=== PATIENT | female | born 1960 | race Caucasian/White ===

== ENCOUNTER → 2016-09-22 | Outpatient (CLI) | payer OTHER ==
[~2016-09-22] MED LIST: CHOL1CAP14 PO; CYMB30CA PO; FLUT50SP EACH NARE; HUMI20KI SQ; HYDR-3583 PO; MECL-62 PO; METH2.5T PO; MOBI7.5T PO; MULTTAB67 PO; ONDA4TAB7 SL; OXYB5TAB10 PO; PRED5TAB PO; VENTAER INH
[2016-09-22 11:43] LABS: HEMATOCRIT 39.3 % (35.0-46.0); MEAN CELL VOLUME 88.8 FL (80.0-100.0); MEAN CORPUSCULAR HEMOGLOBIN 29.5 PG (27.0-34.0); MEAN CORPUSCULAR HGB CONC 33.3 % (32.0-36.0); PLATELET COUNT 238 TH/MM3 (150-450); RED BLOOD COUNT 4.43 MIL/MM3 (4.00-5.30); RED CELL DISTRIBUTION WIDTH 13.3 % (11.6-17.2); REVIEW FLAG FINAL; WHITE BLOOD COUNT 4.7 TH/MM3 (4.0-11.0)
[2016-09-22 12:56] LABS: WESTERGREN SEDIMENTATION RATE 6 mm/hr (0-30)
[2016-09-22 13:13] LABS: ALKALINE PHOSPHATASE 79 U/L (45-117); ALT (GPT) 35 U/L (10-53); ANION GAP 8 MEQ/L (5-15); AST (GOT) 26 U/L (15-37); BLOOD UREA NITROGEN 12 MG/DL (7-18); CHLORIDE 106 MEQ/L (98-107); GLOMERULAR FILTRATION RATE 74 ML/MIN (>89); GLUCOSE,FASTING 91 MG/DL (74-99); POTASSIUM 4.6 MEQ/L (3.5-5.1); SODIUM (NA) 143 MEQ/L (136-145); TOTAL BILIRUBIN ADULT 0.6 MG/DL (0.2-1.0)
== END ==
LOC: OLAB 11:28
PROVIDERS: ATTEND Internal Medicine Rheumatology
DX: Z79.899 Other long term (current) drug therapy (principal)
CPT/HCPCS: 80053; 82306; 84443; 85027; 85652

== ENCOUNTER → 2017-02-21 | Outpatient (CLI) | payer OTHER ==
[~2017-02-21] MED LIST changes: -MOBI7.5T PO; -PRED5TAB PO
[2017-02-21 12:57] LABS: ALT (GPT) 23 U/L (10-53); ANION GAP 7 MEQ/L (5-15); AST (GOT) 17 U/L (15-37); BICARBONATE 28.6 MEQ/L (21.0-32.0); BLOOD UREA NITROGEN 12 MG/DL (7-18); CHLORIDE 104 MEQ/L (98-107); GLOMERULAR FILTRATION RATE 81 ML/MIN (>89); POTASSIUM 4.2 MEQ/L (3.5-5.1); SODIUM (NA) 140 MEQ/L (136-145)
[2017-02-21 13:00] LABS: ALKALINE PHOSPHATASE 76 U/L (45-117); TOTAL BILIRUBIN ADULT 0.4 MG/DL (0.2-1.0)
[2017-02-21 13:07] LABS: AUTOMATED NEUTROPHIL # 3.3 TH/MM3 (1.8-7.7); BASOPHIL % 0.6 % (0.0-2.0); EOSINOPHIL # 0.1 TH/MM3 (0-0.4); HEMATOCRIT 38.7 % (35.0-46.0); HEMO FLAGS DIFF FINAL; LYMPH % 37.1 % (9.0-44.0); LYMPHOCYTE # 2.3 TH/MM3 (1.0-4.8); MEAN CELL VOLUME 89.6 FL (80.0-100.0); MEAN CORPUSCULAR HEMOGLOBIN 30.5 PG (27.0-34.0); MONO % 7.9 % (0.0-8.0); NEUT % 53.4 % (16.0-70.0); PLATELET COUNT 250 TH/MM3 (150-450); RED BLOOD COUNT 4.32 MIL/MM3 (4.00-5.30); RED CELL DISTRIBUTION WIDTH 13.5 % (11.6-17.2); WHITE BLOOD COUNT 6.2 TH/MM3 (4.0-11.0)
[2017-02-21 13:29] LABS: WESTERGREN SEDIMENTATION RATE 7 mm/hr (0-30)
== END ==
LOC: OLAB 11:10
PROVIDERS: ATTEND Internal Medicine Rheumatology
DX: M06.89 Other specified rheumatoid arthritis, multiple sites (principal); Z79.899 Other long term (current) drug therapy
CPT/HCPCS: 36415; 80053; 85025; 85652; 86140